=== PATIENT | female | born 2000 | race Caucasian/White ===

== ENCOUNTER 2018-05-12 09:02 | Emergency (ER) | payer BC ==
[~2018-05-12] VITALS: Ht 154.9 cm; Wt 60.0 kg
[2018-05-12 09:24] LABS: BASO % 0.2 % (0.0-2.0); EOS # 0.2 (0.0-0.7); EOS % 1.1 % (0-4.0); GRAN # 10.8 (1.4-6.5); GRAN % 67.3 % (42.2-75.2); HEMATOCRIT 37.9 % (35.0-45.0); LYMPH # 3.7 (1.2-3.4); LYMPH % 22.9 % (20.0-51.0); MEAN CELL VOLUME 92 fl (80.0-95.0); MEAN CORPUSCULAR HEMOGLOBIN 32 pg (26.0-32.0); MEAN CORPUSCULAR HGB CONC 34 g/dl (33.0-37.0); MEAN PLATELET VOLUME 9.4 fl (7.4-10.4); MONO # 1.3 (0.1-0.6); MONO % 8.3 % (1.7-9.3); PLATELET COUNT 300 K/mm3 (130-400); RED BLOOD COUNT 4.12 M/mm3 (4.10-5.30); REDCELL DISTRIBUTION WIDTH-CV 12.8 % (11.5-14.5)
[2018-05-12] MEDS ORDERED: MIDOL CAPLET1 EACH PO (09:32)
[2018-05-12 09:38] LABS: ALBUMIN 3.9 gm/dL (3.5-5.0); BILIRUBIN,TOTAL 0.2 mg/dL (0.0-1.0); C-REACTIVE PROTEIN 1.8 mg/dL (0.0-0.9); CREATININE, serum 0.77 mg/dL (0.52-1.25); POTASSIUM 3.8 mmol/L (3.4-5.0); TOTAL PROTEIN 6.8 gm/dL (6.4-8.2)
[2018-05-12 09:57] LABS: COLLECTION METHOD CLEAN CATCH
[2018-05-12 10:07] LABS: MUCOUS Present /lpf; PH 6 (5-8); URINE APPEARANCE Cloudy; URINE BACTERIA Occasional /hpf; URINE BILIRUBIN Negative (NEGATIVE); URINE BLOOD 2+ (NEGATIVE); URINE COLOR Yellow; URINE GLUCOSE Negative (NEGATIVE); URINE KETONE Negative (NEGATIVE); URINE LEUKOCYTE ESTERASE 3+ (NEGATIVE); URINE NITRATE Positive (NEGATIVE); URINE PROTEIN(semi-quant) 2+ (NEGATIVE); URINE RBC 20-50 /hpf; URINE UROBILINOGEN Negative (NEGATIVE)
[2018-05-12] MEDS ORDERED: NORCO 325 MG-51 TAB PO (11:56)
[2018-05-12] MEDS ORDERED: PHENERGAN 25 TA25 MG PO (11:56)
[2018-05-12] MEDS ORDERED: OMNICEF 300MG300 MG PO (11:56)
[2018-05-12 12:20] VITALS: BP 100/68; PULSE 81; TEMP 97.7
[2018-05-12] MEDS ORDERED: ZOFRAN ODT4 MG PO (19:07)
== END 2018-05-12 12:20 | disposition home or self-care (01) ==
LOC: COL.ER 09:02
PROVIDERS: Emergency Medicine
DX: N39.0 Urinary tract infection, site not specified (principal); F17.210 Nicotine dependence, cigarettes, uncomplicated; F12.90 Cannabis use, unspecified, uncomplicated
CPT/HCPCS: J0696; J1170; J1885; J2550; J7030; Q9967

== ENCOUNTER 2018-05-12 18:17 | Emergency (ER) | payer BC ==
[~2018-05-12] VITALS: Ht 154.9 cm; Wt 61.4 kg
[~2018-05-12 18:17] MED LIST: MIDOL CAPLET1 EACH PO; NORCO 325 MG-51 TAB PO; OMNICEF 300MG300 MG PO; PHENERGAN 25 TA25 MG PO
[2018-05-12 18:22] VITALS: TEMP 98.1
[2018-05-12] MEDS ORDERED: ZOFRAN ODT4 MG PO (19:07)
[2018-05-12 19:44] VITALS: BP 97/62; PULSE 94
== END 2018-05-12 19:46 | disposition home or self-care (01) ==
LOC: COL.ER 18:17
DX: R11.2 Nausea with vomiting, unspecified (principal)
CPT/HCPCS: J2405; J2765; J7030

== ENCOUNTER 2018-12-01 14:35 | Emergency (ER) | payer BC ==
[~2018-12-01] VITALS: Ht 154.9 cm; Wt 81.8 kg
[~2018-12-01 14:35] MED LIST changes: +ATARAX 25MG25 MG/TAB PO; +CEPHALEXIN500 M1 PO; +NORCO 325 MG-7.1 TAB PO; +ZITHROMAX 250M250 MG PO; +ZOFRAN ODT4 MG PO
[2018-12-01 14:38] VITALS: TEMP 97.5
[2018-12-01 15:37] LABS: BASO % 0.3 % (0.0-2.0); EOS # 0.2 (0.0-0.7); EOS % 2.2 % (0-4.0); GRAN # 4.9 (1.4-6.5); GRAN % 52.8 % (42.2-75.2); HEMATOCRIT 42.2 % (35.0-45.0); HEMOGLOBIN 14.4 g/dl (12.0-15.0); LYMPH # 3.5 (1.2-3.4); LYMPH % 37.3 % (20.0-51.0); MEAN CELL VOLUME 93 fl (80.0-95.0); MEAN CORPUSCULAR HEMOGLOBIN 32 pg (26.0-32.0); MEAN CORPUSCULAR HGB CONC 34 g/dl (33.0-37.0); MEAN PLATELET VOLUME 9.5 fl (7.4-10.4); MONO # 0.7 (0.1-0.6); MONO % 7.2 % (1.7-9.3); PLATELET COUNT 286 K/mm3 (130-400); RED BLOOD COUNT 4.54 M/mm3 (4.10-5.30); REDCELL DISTRIBUTION WIDTH-CV 12.1 % (11.5-14.5)
[2018-12-01 15:52] LABS: ALANINE AMINOTRANSFERASE 24 U/L (9-52); ALBUMIN 4.3 gm/dL (3.5-5.0); ALKALINE PHOSPHATASE 56 U/L (50-136); ANION GAP 7 mmol/L (7-16); AST,SGOT 26 U/L (15-37); BILIRUBIN,TOTAL 0.3 mg/dL (0.0-1.0); BLOOD UREA NITROGEN 15 mg/dL (7-17); CALCIUM 9.6 mg/dL (8.4-10.2); CARBON DIOXIDE 25 mmol/L (22-30); CHLORIDE 107 mmol/L (98-107); CREATININE, serum 0.73 mg/dL (0.52-1.25); GLUCOSE 78 mg/dL (74-106); LIPASE 62 U/L (23-300); POTASSIUM 4.1 mmol/L (3.4-5.0); SODIUM 139 mmol/L (137-145); TOTAL PROTEIN 7.3 gm/dL (6.4-8.2)
[2018-12-01 15:58] LABS: C-REACTIVE PROTEIN < 0.5 mg/dL (0.0-0.9)
[2018-12-01 16:32] LABS: COLLECTION METHOD CLEAN CATCH
[2018-12-01 16:43] LABS: MUCOUS Present /lpf; PH 5 (5-8); URINE APPEARANCE Clear; URINE BACTERIA Rare /hpf; URINE BILIRUBIN Negative (NEGATIVE); URINE BLOOD 3+ (NEGATIVE); URINE COLOR Yellow; URINE GLUCOSE Negative (NEGATIVE); URINE KETONE Negative (NEGATIVE); URINE LEUKOCYTE ESTERASE Negative (NEGATIVE); URINE NITRATE Negative (NEGATIVE); URINE PROTEIN(semi-quant) Negative (NEGATIVE); URINE RBC 20-50 /hpf; URINE UROBILINOGEN Negative (NEGATIVE)
[2018-12-01] MEDS ORDERED: NAPROSYN500 MG PO (17:24)
[2018-12-01 18:02] VITALS: BP 101/51; PULSE 65
== END 2018-12-01 18:02 | disposition home or self-care (01) ==
LOC: COL.ER 14:35
PROVIDERS: Emergency Medicine
DX: N94.6 Dysmenorrhea, unspecified (principal); F41.9 Anxiety disorder, unspecified; F32.9 Major depressive disorder, single episode, unspecified; F17.210 Nicotine dependence, cigarettes, uncomplicated
CPT/HCPCS: J1170; J1885; J2405; J7030; Q9967